=== PATIENT | female | born 1955 | race Caucasian/White ===

== ENCOUNTER 2017-07-27 13:03 | Inpatient (IN) | payer MEDICARE ==
[~2017-07-27] VITALS: Ht 172.7 cm; Wt 52.0 kg
[2017-07-27] MEDS ORDERED: ONDANSETRON HCL 4 MG/2 ML VIAL IV ONE (13:15)
[2017-07-27] MEDS ORDERED: SODIUM CHLORIDE 0.9% 500 ML IV ONE (13:15)
[2017-07-27] MEDS ORDERED: MORPHINE SULFATE 4 MG/ML SYR/VIAL IV ONE ×2 (13:15→15:00)
[2017-07-27 14:05] LABS: Basophils # (auto) 0.1 uL; Basophils % (auto) 1.5 % (0.0-2.0); Eosinophils # (auto) 0.1 uL; Eosinophils % (auto) 1.8 % (0.0-7.0); Hematocrit 41.4 % (36.0-46.0); Hemoglobin 13.7 g/dL (12.2-16.2); Lymphocytes % (auto) 45.3 % (10.0-50.0); Mean Corpuscular Hemoglobin 30.8 pg (28.0-32.0); Mean Corpuscular Hgb Conc. 33.1 g/dL (32.0-36.0); Mean Corpuscular Volume 92.9 fL (80.0-100.0); Monocytes # (auto) 0.5 uL; Monocytes % (auto) 6.8 % (0.0-12.0); Neutrophils % (auto) 44.6 % (37.0-80.0); Nucleated Red Blood Cells % 0.6 %; Platelet Count (auto) 340 10^3/uL (140-450); Red Blood Cells 4.45 10^6/uL (4.0-5.20); Red Cell Distribution Width 16.3 % (11.8-14.3); White Blood Cell 6.7 10^3/uL (4.4-10.8)
[2017-07-27] MEDS ORDERED: LORazepam 2MG/ML-1ML VIAL IV ONE (14:15)
[2017-07-27 14:24] LABS: Albumin 3.4 g/dL (3.4-5.0); BUN/Creatinine Ratio 27.1; Bilirubin, Total 0.4 mg/dL (0.2-1.0); Calcium 9.4 mg/dL (8.5-10.1); Potassium 3.7 mmol/L (3.5-5.1); Total Protein 7.8 g/dL (6.4-8.2)
[2017-07-27] MEDS: SODIUM CHLORIDE 0.9% 1,000 ML IV SCH (15:24)
[2017-07-27] MEDS ORDERED: HYDROcodone-ACET 5/325MG TAB PO PRN (15:30)
[2017-07-27] MEDS ORDERED: PROMETHAZINE HCL 25 MG/ML 1ML IV PRN (15:30)
[2017-07-27] MEDS ORDERED: ACETAMINOPHEN 500 MG TAB PO PRN (15:30)
[2017-07-27] MEDS ORDERED: LORazepam 0.5 MG TAB PO PRN (15:30)
[2017-07-27] MEDS ORDERED: TEMAZEPAM 15 MG CAP PO PRN (15:30)
[2017-07-27] MEDS: FAMOTIDINE (10MG/ML) 2ML VL IV SCH ×2 (16:12→21:55)
[2017-07-27 16:34] LABS: Alcohol, Urine < 3.0 mg/dL (0-5); Amphetamine Screen, Urine NEGATIVE (NEGATIVE); Barbiturate Scree,Urine NEGATIVE (NEGATIVE); Benzodiazephine Screen, Urine POSITIVE (NEGATIVE); Cannabinoid Screen, Urine POSITIVE (NEGATIVE); Cocaine Screen, Urine NEGATIVE (NEGATIVE); Opiate Scree,Urine POSITIVE (NEGATIVE); Phencyclidine Screen, Urine NEGATIVE (NEGATIVE)
[2017-07-27 17:01] LABS: Urine Bacteria NONE SEEN /hpf (None Seen); Urine Blood Negative /uL (Negative); Urine Specific Gravity 1.006 (1.001-1.035); Urine WBC 1 /hpf (0 - 5)
[2017-07-27] MEDS: MORPHINE SULFATE 4 MG/ML SYR/VIAL IV PRN (19:55)
[2017-07-27] MEDS ORDERED: MIRT30TA PO (20:23)
[2017-07-27] MEDS ORDERED: HYDR-4683 PO (20:23)
[2017-07-27] MEDS ORDERED: DIA5T PO (20:23)
[2017-07-27] MEDS ORDERED: VORT1TAB PO (20:23)
[2017-07-27] MEDS ORDERED: GABA-339 PO (20:23)
[2017-07-27] MEDS ORDERED: TIZA4CAP PO (20:23)
[2017-07-27] MEDS: GABAPENTIN 300 MG CAP PO SCH (21:55)
[2017-07-27 22:00] VITALS: BP 128/73
[2017-07-27] MEDS ORDERED: MIRTAZAPINE 30 MG TAB PO SCH (22:00)
[2017-07-28] MEDS: MORPHINE SULFATE 4 MG/ML SYR/VIAL IV PRN ×3 (00:13→09:45)
[2017-07-28] MEDS: SODIUM CHLORIDE 0.9% 1,000 ML IV SCH ×2 (04:44→18:04)
[2017-07-28 05:00] VITALS: BP 108/76
[2017-07-28] MEDS: DIAZEPAM 2 MG TAB PO PRN ×2 (06:16→15:28)
[2017-07-28] MEDS: GABAPENTIN 300 MG CAP PO SCH ×2 (06:16→13:50)
[2017-07-28 09:00] VITALS: BP 111/64
[2017-07-28] MEDS: FAMOTIDINE (10MG/ML) 2ML VL IV SCH (09:43)
[2017-07-28 13:00] VITALS: BP 120/67
[2017-07-28] MEDS ORDERED: MEPERIDINE HCL (50 MG/ML) 1 ML VIAL ONE (15:13)
[2017-07-28] MEDS ORDERED: MEPERIDINE HCL (50 MG/ML) 1 ML VIAL IM ONE (15:15)
[2017-07-28] MEDS ORDERED: MEPERIDINE HCL (50 MG/ML) 1 ML VIAL IV ONE (15:15)
[2017-07-28] MEDS ORDERED: OXYCODONE HCL 5MG TAB PO PRN (16:30)
[2017-07-28] MEDS ORDERED: clonazePAM 0.5 MG TAB PO PRN ×2 (16:30)
[2017-07-28] MEDS ORDERED: AMITRIPTYLINE HCL 25 MG TAB PO SCH (17:31)
[2017-07-28] MEDS ORDERED: BOOST PLUS 8 ounce PO SCH ×2 (18:00)
[2017-07-28 19:24] VITALS: BP 102/65
== END 2017-07-28 20:40 | disposition home or self-care (01) | DRG 552 ==
LOC: EDBD 13:03 → ER 13:03 → OVERFLOW 13:04 → CENTRAL 19:43
PROVIDERS: ADMIT Internal Medicine; ATTEND Family Medicine
DX: M54.5 Low back pain (principal); G62.9 Polyneuropathy, unspecified; G89.4 Chronic pain syndrome; F41.9 Anxiety disorder, unspecified; G47.00 Insomnia, unspecified; G56.32 Lesion of radial nerve, left upper limb; G56.22 Lesion of ulnar nerve, left upper limb; Z79.899 Other long term (current) drug therapy; Z91.5 Personal history of self-harm
CPT/HCPCS: 36415; 72100; 80053; 80307; 81001; 82550; 84443; 85025; 85652; 94761; 96361; 96374; 96375; J2405; J3490

== ENCOUNTER 2017-08-11 09:36 | Emergency (ER) | payer MEDICARE, OTHER ==
[~2017-08-11] VITALS: Ht 172.7 cm; Wt 53.5 kg
[~2017-08-11 09:36] MED LIST: DIA5T PO; GABA-339 PO; HYDR-4683 PO; MIRT30TA PO; TIZA4CAP PO; VORT1TAB PO
[2017-08-11 10:14] VITALS: BP 121/95
[2017-08-11] MEDS ORDERED: PROMETHAZINE HCL 25 MG/ML 1ML IM ONE (10:30)
[2017-08-11] MEDS ORDERED: diphenhdrAMINE HCL 50 MG/1 ML VL IM ONE (10:30)
[2017-08-11] MEDS ORDERED: MEPERIDINE HCL (50 MG/ML) 1 ML VIAL IM ONE (10:30)
== END 2017-08-11 11:17 | disposition home or self-care (01) ==
LOC: ER 09:36
DX: M25.572 Pain in left ankle and joints of left foot (principal); G62.9 Polyneuropathy, unspecified
CPT/HCPCS: 96372; 99284; J1200; J2175; J2550

== ENCOUNTER 2017-08-13 13:31 | Observation (INO) | payer OTHER ==
[~2017-08-13] VITALS: Ht 172.7 cm; Wt 49.4 kg
[2017-08-13 14:11] VITALS: BP 100/69
[2017-08-13] MEDS ORDERED: ONDANSETRON HCL 4 MG/2 ML VIAL IV ONE (15:30)
[2017-08-13] MEDS ORDERED: MORPHINE SULFATE 4 MG/ML SYR/VIAL IV ONE (15:30)
[2017-08-13] MEDS ORDERED: KETOROLAC TROMETH 30 MG/ML 1ML VIAL IV ONE (16:30)
[2017-08-23] MEDS ORDERED: fentaNYL CITRATE 100 MCG/2 ML VL ONE (11:05)
[2017-08-23] MEDS ORDERED: LIDOCAINE VISCOUS 2% 15ML UD ONE (11:05)
[2017-08-23] MEDS ORDERED: diphenhdrAMINE HCL 50 MG/1 ML VL ONE (11:06)
[2017-08-23] MEDS ORDERED: MIDAZOLAM HCL 5 MG/ML-1ML VIAL ONE (11:06)
== END 2017-08-13 17:26 | disposition home or self-care (01) | DRG 93 ==
LOC: ER 13:31 → EDUNIT# 13:31 → EDBD 13:31 → OVERFLOW 15:25 → ER 17:26
PROVIDERS: ADMIT Family Medicine; ATTEND Family Medicine
DX: G89.4 Chronic pain syndrome (principal); M79.604 Pain in right leg; M79.605 Pain in left leg; I10 Essential (primary) hypertension; F12.10 Cannabis abuse, uncomplicated; F32.9 Major depressive disorder, single episode, unspecified; F41.9 Anxiety disorder, unspecified
CPT/HCPCS: 96374; 96375; 99285; G0378; J1885; J2270; J2405

== ENCOUNTER 2017-08-15 20:25 | Emergency (ER) | payer OTHER ==
[~2017-08-15] VITALS: Ht 172.7 cm; Wt 49.0 kg
[2017-08-16] MEDS ORDERED: MEPERIDINE HCL (50 MG/ML) 1 ML VIAL IM ONE (03:45)
[2017-08-16] MEDS ORDERED: KETOROLAC TROMETH 60MG/2ML VIAL IM ONE (03:45)
[2017-08-16] MEDS ORDERED: ONDANSETRON ODT 4 MG TAB PO ONE (03:45)
[2017-08-16 06:22] VITALS: BP 124/76
[2017-08-16] MEDS ORDERED: MEPERIDINE HCL (25 MG/ML) 1ML VIAL IM ONE (06:30)
== END 2017-08-16 06:56 | disposition home or self-care (01) ==
LOC: EDBD 20:25 → ER 20:31
DX: G89.4 Chronic pain syndrome (principal); I10 Essential (primary) hypertension; F12.10 Cannabis abuse, uncomplicated
CPT/HCPCS: 96372; 99284; J1885; J2175; Q0162

== ENCOUNTER 2017-11-06 08:25 | Emergency (ER) | payer OTHER ==
[~2017-11-06] VITALS: Ht 172.7 cm; Wt 43.1 kg
[2017-11-06] MEDS ORDERED: SODIUM CHLORIDE 0.9% 1,000 ML IV ONE ×2 (09:11)
[2017-11-06] MEDS ORDERED: MEPERIDINE HCL (50 MG/ML) 1 ML VIAL IV ONE (09:15)
[2017-11-06] MEDS ORDERED: DIAZEPAM 5 MG/ML 2ML SYRG IV ONE (09:15)
[2017-11-06 09:35] LABS: Urine Bacteria NONE SEEN /hpf (None Seen); Urine Blood TRACE /uL (Negative); Urine Mucus FEW (None Seen); Urine Specific Gravity 1.027 (1.001-1.035); Urine WBC 5 /hpf (0 - 5)
[2017-11-06 09:56] LABS: Basophils # (auto) 0.1 uL; Basophils % (auto) 1.9 % (0.0-2.0); Eosinophils # (auto) 0.1 uL; Eosinophils % (auto) 2.4 % (0.0-7.0); Hematocrit 38.7 % (36.0-46.0); Hemoglobin 12.8 g/dL (12.2-16.2); Lymphocytes # (auto) 1.4 uL; Lymphocytes % (auto) 32.6 % (10.0-50.0); Mean Corpuscular Hemoglobin 31.2 pg (28.0-32.0); Mean Corpuscular Hgb Conc. 33.2 g/dL (32.0-36.0); Mean Corpuscular Volume 93.9 fL (80.0-100.0); Monocytes # (auto) 0.3 uL; Monocytes % (auto) 7.9 % (0.0-12.0); Neutrophils # (auto) 2.4 uL; Neutrophils % (auto) 55.2 % (37.0-80.0); Nucleated Red Blood Cells % 0.1 %; Platelet Count (auto) 405 10^3/uL (140-450); Red Blood Cells 4.12 10^6/uL (4.0-5.20); Red Cell Distribution Width 14.3 % (11.8-14.3); White Blood Cell 4.4 10^3/uL (4.4-10.8)
[2017-11-06 10:00] LABS: INR 0.98 (0.9-1.15); Partial Thromboplastin Time 25.9 sec (23.78-33.04); Prothrombin Time 10.5 sec (9.27-12.13)
[2017-11-06 10:17] LABS: Alanine Aminotransferase 17 U/L (13-56); Albumin 3.3 g/dL (3.4-5.0); Alkaline Phosphatase 39 U/L (45-117); Anion Gap 11 (5-15); Aspartate Aminotransferase 11 U/L (15-37); BUN/Creatinine Ratio 24.1; Bilirubin, Total 0.5 mg/dL (0.2-1.0); Blood Urea Nitrogen 13 mg/dL (7-18); Calcium 8.6 mg/dL (8.5-10.1); Carbon Dioxide 23 mmol/L (21-32); Chloride 107 mmol/L (98-107); GFR African American 148 mL/min; GFR Non-African American 122 mL/min; Glucose 94 mg/dL (74-106); Potassium 3.5 mmol/L (3.5-5.1); Sodium 141 mmol/L (136-145); Total Protein 6.9 g/dL (6.4-8.2)
[2017-11-06] MEDS ORDERED: DIAZEPAM 5 MG TAB PO ONE (11:00)
[2017-11-06 12:41] VITALS: BP 126/72
[2017-11-06] MEDS ORDERED: LORazepam 0.5 MG TAB PO ONE ×2 (13:45)
== END 2017-11-06 14:00 | disposition home or self-care (01) ==
LOC: ER 08:25
DX: G89.0 Central pain syndrome (principal); R41.82 Altered mental status, unspecified
CPT/HCPCS: 36415; 70450; 80053; 81001; 84484; 85025; 85610; 85730; 99285; J2175; J7030